=== PATIENT | male | born 1950 | race African-American/Black ===

== ENCOUNTER 2018-02-27 23:13 | Emergency (ER) | payer OTHER ==
[~2018-02-27] VITALS: Ht 180.3 cm; Wt 95.5 kg
[2018-02-27 23:42] LABS: HEMATOCRIT 40.1 % (38.0-50.0); HEMOGLOBIN 13.5 G/DL (12.5-16.6); MCH 28.4 PG (29.0-34.0); MCHC 33.7 G/DL (30.0-36.0); MCV 84.4 FL (86-99); RBC DIS.WIDTH-CV 13.3 % (11.8-14.6); RBC DIS.WIDTH-SD 41.3 % (39-53); RED BLOOD COUNT 4.75 M/uL (4.00-5.50); WHITE BLOOD COUNT 7.3 K/uL (4.1-10.2)
[2018-02-27 23:52] LABS: PLATELET COUNT 191 K/uL (156-360)
[2018-02-27 23:54] LABS: CHLORIDE 103 mEq/L (99-109); POTASSIUM 3.7 mEq/L (3.7-5.4); SODIUM 140 mEq/L (136-147)
[2018-02-27 23:56] LABS: GLUCOSE 174 mg/dL (70-99)
[2018-02-28] LABS: CREATININE 1.3 mg/dL (0.6-1.3); GFR ESTIMATE (CALCULATED) > 59 mL/min/ (58.99-99999)
[2018-02-28 00:01] LABS: UREA NITROGEN (BUN) 17 mg/dL (9-23)
[2018-02-28 00:08] LABS: TROP-I INTERPRETATION NEGATIVE; TROPONIN-I < 0.01 ng/mL (0.0-0.30)
[2018-02-28 01:17] LABS: TOTAL PROTEIN 6.9 g/dL (6.4-8.3)
[2018-02-28 01:18] LABS: APPEARANCE CLEAR ((CLEAR)); BILIRUBIN NEGATIVE; BLOOD NEGATIVE; COLOR YELLOW ((YELLOW)); GLUCOSE (STRIP) NEGATIVE; KETONES NEGATIVE; LEUKOCYTES NEGATIVE; NITRITE NEGATIVE; PROTEIN (STRIP) NEGATIVE; UCUL ADDED? NO
[2018-02-28 01:18] LABS: TOTAL BILIRUBIN 0.2 mg/dL (0.0-1.0)
[2018-02-28 01:20] LABS: ALKALINE PHOSPHATASE 57 IU/L (3-129); PLAT.SUFFICIENCY ADEQUATE
[2018-02-28 01:22] LABS: AST (GOT) 20 IU/L (2-34); DIRECT BILIRUBIN 0.1 mg/dL (0.0-0.3)
[2018-02-28 01:23] LABS: ACETAMINOPHEN (TYLENOL) < 10 mcg/mL (10-30); ALT (GPT) 29 IU/L (3-49); SALICYLATE < 5.0 MG/DL (15-30)
[2018-02-28 01:24] LABS: LIPASE 98 U/L (1.0-51.0)
[2018-02-28 01:29] LABS: AMPHETAMINE NEGATIVE (500 ng/mL); BARBITURATES NEGATIVE (200 ng/mL); BENZODIAZEPINES NEGATIVE (150 ng/mL); BUPRENORPHINE NEGATIVE (10 ng/mL); COCAINE NEGATIVE (150 ng/mL); METHADONE NEGATIVE (200 ng/mL); METHAMPHETAMINE NEGATIVE (500 ng/mL); OPIATES (MORPHINE) NEGATIVE (100 ng/mL); OXYCODONE NEGATIVE (100 ng/mL); PHENCYCLIDINE NEGATIVE (25 ng/mL); PROPOXYPHENE NEGATIVE (300 ng/mL); THC CANNABINOIDS PRESUMPTIVE POSITIVE (50 ng/mL); TRICYCLIC ANTIDEPRESSANTS NEGATIVE (300 ng/mL)
[2018-02-28 02:11] LABS: TROP-I INTERPRETATION NEGATIVE; TROPONIN-I < 0.01 ng/mL (0.0-0.30)
[2018-02-28 02:56] VITALS: BP 154/88
== END 2018-02-28 03:00 | disposition home or self-care (01) ==
LOC: EME 23:13
PROVIDERS: Emergency Medicine
DX: R07.89 Other chest pain (principal); R00.2 Palpitations; T50.905A Adverse effect of unspecified drugs, medicaments and biological substances, initial encounter
CPT/HCPCS: 71046; 80048; 80076; 81003; 83690; 84484; 84999; 85027; 93005; 99281; 99285; G0480; J7030